=== PATIENT | female | born 2000 | race Caucasian/White ===

== ENCOUNTER 2023-08-12 16:23 | Emergency (ER) | payer OTHER, SELFPAY ==
[~2023-08-12] VITALS: Ht 180.3 cm; Wt 93.2 kg
[2023-08-12] MEDS ORDERED: [UNRECOGNIZED DRUG - OTHER] (16:32)
[2023-08-12] MEDS ORDERED: CEPH500T PO (18:14)
[2023-08-12] MEDS: CEPHALEXIN 500 MG CAP PO ONE (18:18)
[2023-08-12 18:26] VITALS: BP 122/73; TEMP 98; O2SAT 100
== END 2023-08-12 18:29 | disposition home or self-care (01) ==
LOC: M ED 16:23
DX: S61.304A Unspecified open wound of right ring finger with damage to nail, initial encounter (principal); W26.8XXA Contact with other sharp object(s), not elsewhere classified, initial encounter; Y92.009 Unspecified place in unspecified non-institutional (private) residence as the place of occurrence of the external cause; Y93.89 Activity, other specified; Y99.9 Unspecified external cause status; J30.89 Other allergic rhinitis